=== PATIENT | male | born 1965 | race Two or more races ===

== ENCOUNTER 2018-05-19 09:27 | Day surgery (SDC) | payer BC ==
[2018-05-15 12:03] VITALS: BMI 26.2
[~2018-05-19 09:27] MED LIST: LACTATED RINGERS 1,000 ML IV SCH; LIDOCAINE 1% 20 ML VIAL (10MG/ML) FOR IV START INTRADERMA PRN
[2018-05-19 09:55] VITALS: TEMP 97.4
[2018-05-19] MEDS ORDERED: LIDOCAINE 1% INJ 10MG/ML (20 ML MDV) ONE (11:05)
[2018-05-19] MEDS ORDERED: PROPOFOL 10 MG/ML 20 ML VIAL IV ONE (11:05)
[2018-05-19 11:32] VITALS: RESP 12
--- NOTE | 2018-05-19 11:35 | P.PCN ---
Date of Procedure: 05/19/18 Procedure(s) Performed: Procedure: Esophagogastroduodenoscopy and biopsy. Preoperative diagnosis: Chronic reflux symptoms. Postoperative diagnosis: 1. Sliding hiatal hernia with no obvious esophagitis or complicated reflux disease. 2. Mild antral gastritis. 3. Multiple biopsies obtained from the duodenum, antrum and esophagus. Preparation and sedation: Was provided by anesthesia. Brief clinical history: The patient is a 53-year-old male who is scheduled for this evaluation because of reflux symptoms of around 2 years duration. The patient takes [id number] medications. No alarm symptoms. This would be his first evaluation to assess for esophagitis, complicated reflux disease or other pathology. Procedure: With the patient on his left lateral decubitus position and after informed consent and adequate sedation, I passed the Olympus GIF H190 video upper endoscope through the cricopharyngeus down the esophagus. GE junction was around 41-42 cm from the incisors and there was a small sliding hiatal hernia but no obvious esophagitis or complicated reflux disease. The endoscope was then passed into the stomach which was insufflated with air and inspected in detail including the retroflex view in the cardia. There was some mottling and erythema in the antrum but no ulcers or erosions. Pyloric channel, duodenal bulb, post bulbar area and descending duodenum appeared within normal limits. Because of her symptoms, I obtained biopsies from the duodenum, antrum and esophagus then the endoscope was withdrawn. The patient tolerated the procedure well. Plan: The patient was reassured. Will await biopsy results and make further recommendations based on his course and biopsy results. He will follow up with you as planned and I will be happy to see in the office if his symptoms persist.
[2018-05-19 12:08] VITALS: BP 142/87; PULSE 83
== END 2018-05-19 12:37 | disposition home or self-care (01) ==
LOC: ORWHC2ENDO 09:27
DX: K21.0 Gastro-esophageal reflux disease with esophagitis (principal); K29.50 Unspecified chronic gastritis without bleeding; K44.9 Diaphragmatic hernia without obstruction or gangrene; I10 Essential (primary) hypertension; Z79.899 Other long term (current) drug therapy
CPT/HCPCS: 88305; 43239; J2001; J2704